=== PATIENT | female | born 1965 | race Native Hawaiian/Other Pacific Islander ===

== ENCOUNTER 2016-12-28 07:05 | Day surgery (SDC) | payer OTHER, SELFPAY ==
[2016-12-26 10:16] VITALS: BMI 21.3
[~2016-12-28 07:05] MED LIST: Ciprofloxacin 0.3% OPTH SOLN OS SCH; Cyclopentolate 1% Opth (2 ml) OS SCH; Flurbiprofen 0.03% Opht SOLN OS SCH; Lactated Ringer's 500 ML IV ONE; Phenylephrine 2.5% Opht Soln OS SCH; Tropicamide 1% Opht SOLUTION OS SCH; acetaZOLAMIDE 500 mg SR Cap PO ONE
[2016-12-28] MEDS ORDERED: Povidone Iodine Ophthalmic 5% Soln ONE (07:24)
[2016-12-28] MEDS ORDERED: Carbachol 0.01% IO ONE (07:24)
[2016-12-28] MEDS ORDERED: Lidocaine 2% Inj (20ml) ONE (07:25)
[2016-12-28] MEDS ORDERED: Tobramycin/Dexamethasone OPHT OINT ONE (07:25)
[2016-12-28] MEDS ORDERED: Tetracaine 0.5% Ophth (OR ONLY) ONE (07:25)
[2016-12-28] MEDS ORDERED: Hyaluronidase Human, Recombi 150 U/ML VIAL ONE (07:25)
[2016-12-28] MEDS ORDERED: Chondroitin/Hyaluronate Opth Syringe KIT (0.55 ml-0.5 ml) IO ONE (07:25)
[2016-12-28] MEDS ORDERED: Lactated Ringer's 1,000 ML IV ONE (08:02)
[2016-12-28] MEDS ORDERED: Midazolam 2 MG/2 ML VIAL ONE (09:12)
[2016-12-28] MEDS ORDERED: acetaZOLAMIDE 500 mg SR Cap PO ONE (10:00)
[2016-12-28 10:52] VITALS: TEMP 96.7
[2016-12-28 10:59] VITALS: BP 120/77; PULSE 64; RESP 20; O2SAT 100
--- NOTE | 2017-01-04 15:39 | PCM.OP ---
Operative Report - Operative Report Date of Surgery/Procedure: 12/28/16 Surgeon: Dr. Ybarra and [ ] Anesthesia/Sedation: Local with IV sedation Pre-Operative Diagnosis: Cataract left eye Post-Operative Diagnosis: Cataract left eye Procedure/Operation Description: Phacoemulsification of left eye
--- NOTE | 2017-01-18 20:49 | OP ---
PROCEDURE DATE: 12/28/2016 PREOPERATIVE DIAGNOSIS: Cataract. POSTOPERATIVE DIAGNOSIS: Cataract. PROCEDURE: Phacoemulsification, insertion of lens implant. SURGEON: David Ybarra MD CO-SURGEON: Dr. Collier. ANESTHESIA TYPE: Local intravenous sedation. PROCEDURE: The patient was brought into the operating room, placed in supine position, prepped and draped in the usual fashion for ophthalmic surgery. Lid speculum was inserted, lids and exposing globe. A side-port incision was made superiorly and inferiorly with a disposable sharp blade. Anterior chamber was filled with Viscoat. A near clear corneal incision was made temporally with a 2.75-mm keratome. Capsulorrhexis was then performed with Utrata forceps. Hydrodissection carried out with balanced salt solution. Nucleus was phacoemulsified. Remaining cortical fragments were removed with a split irrigation and aspiration system. The capsular sac was filled with Provisc. A posterior chamber lens was then injected into the capsular sac and rotated into horizontal position. Provisc was aspirated out of the anterior chamber. The pupil was constricted with Miochol. The wound was found to be watertight. Topical Betadine, Timoptic, and TobraDex ointment and pressure patch were applied. The patient tolerated the procedure well. David Ybarra MD
== END 2016-12-28 10:29 | disposition home or self-care (01) ==
LOC: C.SDS 07:05
PROVIDERS: ATTEND Ophthalmology
DX: H26.9 Unspecified cataract (principal)
CPT/HCPCS: 66984; J2250; J3010; J3470; J7120; V2632

== ENCOUNTER 2017-01-13 11:07 | Day surgery (SDC) | payer OTHER ==
[2016-12-26 10:14] VITALS: BMI 21.3
[~2017-01-13 11:07] MED LIST changes: +Ciprofloxacin 0.3% OPTH SOLN OD SCH; -Ciprofloxacin 0.3% OPTH SOLN OS SCH; -Cyclopentolate 1% Opth (2 ml) OS SCH; +Flurbiprofen 0.03% Opht SOLN OD SCH; -Flurbiprofen 0.03% Opht SOLN OS SCH; +Phenylephrine 2.5% Opht Soln OD SCH; -Phenylephrine 2.5% Opht Soln OS SCH; +Tropicamide 1% Opht SOLUTION OD SCH; -Tropicamide 1% Opht SOLUTION OS SCH
[2017-01-13] MEDS ORDERED: Carbachol 0.01% IO ONE ×2 (11:48→14:19)
[2017-01-13 11:53] VITALS: O2SAT 100
[2017-01-13] MEDS ORDERED: Lactated Ringer's 500 ML IV ONE (11:56)
[2017-01-13] MEDS: Chondroitin/Hyaluronate Opth Syringe KIT (0.55 ml-0.5 ml) IO ONE ×2 (12:05→13:59)
[2017-01-13] MEDS: Hyaluronidase Human, Recombi 150 U/ML VIAL ONE ×2 (12:06→13:56)
[2017-01-13] MEDS: Povidone Iodine Ophthalmic 5% Soln ONE ×2 (12:07→14:09)
[2017-01-13] MEDS: Lidocaine 2% Inj (20ml) ONE ×2 (12:07→13:56)
[2017-01-13] MEDS: Tetracaine 0.5% Ophth (OR ONLY) ONE ×2 (12:08→14:10)
[2017-01-13] MEDS: Tobramycin/Dexamethasone OPHT OINT ONE ×2 (12:09→14:17)
[2017-01-13] MEDS ORDERED: Midazolam 2 MG/2 ML VIAL ONE (13:55)
[2017-01-13] MEDS ORDERED: acetaZOLAMIDE 500 mg SR Cap PO ONE (14:45)
[2017-01-13 15:48] VITALS: BP 115/67; PULSE 62; RESP 18; TEMP 98.2
--- NOTE | 2017-01-18 20:06 | OP ---
PROCEDURE DATE: 01/13/2017 PREOPERATIVE DIAGNOSIS: Cataract. POSTOPERATIVE DIAGNOSIS: Cataract. PROCEDURE: Phacoemulsification, insertion of lens implant. SURGEON: Dr. David Ybarra. COSURGEON: . ANESTHESIA TYPE: Local intravenous sedation. PROCEDURE IN DETAIL: The patient was brought into the operating room, placed in supine position, prepped and draped in the usual fashion for ophthalmic surgery. Lid speculum was inserted, lids and exposing globe. A side-port incision was made superiorly and inferiorly with a disposable sharp blade. Anterior chamber was filled with Viscoat. A near clear corneal incision was made temporally with a 2.75-mm keratome. Capsulorrhexis was then performed with Utrata forceps. Hydrodissection carried out with balanced salt solution. Nucleus was phacoemulsified. Remaining cortical fragments were removed with a split irrigation and aspiration system. The capsular sac was filled with Provisc. A posterior chamber lens was then injected into the capsular sac and rotated into horizontal position. Provisc was aspirated out of the anterior chamber. The pupil was constricted with Miochol. The wound was found to be watertight. Topical Betadine, Timoptic, and TobraDex ointment and pressure patch were applied. The patient tolerated the procedure well. David Ybarra MD
== END 2017-01-13 15:15 | disposition home or self-care (01) ==
LOC: C.SDS 11:07
PROVIDERS: ATTEND Ophthalmology
DX: H26.9 Unspecified cataract (principal)
CPT/HCPCS: 66984; C1713; J2250; J3470; J7120; V2632